=== PATIENT | male | born 1995 ===

== ENCOUNTER 2025-05-12 10:58 | Emergency (ER) | payer MEDICAID, SELFPAY ==
--- NOTE | ~2025-05-12 | XR_ITS ---
EXAMINATION: XR FEMUR, LEFT CLINICAL INFORMATION: fall COMPARISON: None available. TECHNIQUE: AP and lateral views of the left femur were obtained. FINDINGS: Right hip and knee joints are grossly unremarkable. There is no knee joint effusion. There is no femoral fracture evident. XR/XR femur LT 2V IMPRESSION: Unremarkable left femur. Electronically signed by: Franko Mullins MD 05/12/2025 12:27 PM EDT
--- NOTE | ~2025-05-12 | US_ITS ---
EXAMINATION: US TRIPLEX LOWER EXTREMITY, LEFT CLINICAL INFORMATION: Left leg pain COMPARISON: None available. TECHNIQUE: Color-flow triplex imaging with spectral analysis and compression Doppler were performed on the left lower extremity. FINDINGS: Respiratory variation, normal compression and augmented flow are noted throughout the left lower extremity. The visualized common femoral vein, superficial femoral vein, profunda femoral vein, popliteal vein and midcalf peroneal and posterior tibial venous segments show no evidence of deep venous thrombosis. US/US venous duplex LE LT IMPRESSION: No evidence of deep venous thrombosis involving the left lower extremity. Electronically signed by: Franko Mullins MD 05/12/2025 02:50 PM EDT
--- NOTE | ~2025-05-12 | XR_ITS ---
2 view left tibia and fibula. INDICATION: Pain and swelling Prior: None FINDINGS: No acute fracture or deformity is evident. XR/XR tibia fibula LT 2V IMPRESSION: Unremarkable left tibia and fibula. Electronically signed by: Franko Mullins MD 05/12/2025 12:26 PM EDT RP
--- NOTE | ~2025-05-12 | XR_ITS ---
EXAMINATION: XR LUMBOSACRAL SPINE CLINICAL INFORMATION: back pain COMPARISON: None available. TECHNIQUE: Three views of the lumbosacral spine. FINDINGS: The vertebral bodies and posterior elements are normal. The disc spaces are preserved and the vertebral alignment is normal. The paraspinal soft tissues are normal. XR/XR lumbar spine 2-3V IMPRESSION: Unremarkable lumbar spine. Electronically signed by: Franko Mullins MD 05/12/2025 12:29 PM EDT
--- NOTE | ~2025-05-12 | XR_ITS ---
EXAMINATION: XR PELVIS CLINICAL INFORMATION: fall COMPARISON: None available. TECHNIQUE: AP view of the pelvis. FINDINGS: No fracture. Hip joint spaces are maintained. Alignment is anatomic. Sacroiliac joints and pubic symphysis are normal. No abnormal soft tissue calcifications. XR/XR pelvis 1-2V IMPRESSION: Unremarkable pelvic x-ray Electronically signed by: Franko Mullins MD 05/12/2025 12:28 PM EDT
[2025-05-12 11:29] VITALS: BP 123/80; PULSE 84; RESP 20; TEMP 37; O2SAT 98; BMI 22.0
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
[2025-05-12 12:43] VITALS: BP 129/79; PULSE 69; RESP 16; TEMP 36.2; O2SAT 100
[2025-05-12 15:28] VITALS: BP 113/66; PULSE 65; RESP 16; O2SAT 98
[2025-05-12 16:15] VITALS: BP 113/66; PULSE 65; RESP 16; TEMP 36.3; O2SAT 98
--- OUTSIDE RECORDS SUMMARY | 2025-05-12 16:48 | XMS_ITS | Clinical Summary ---
Author Organization [facility] Address [address] [place] [address] Care Team Providers Care Senior Procurement Manager Name Role Phone Unavailable Primary Care Provider Unavailabl e Source Comments PLEASE NOTE, if this patient is a minor, it may be UNLAWFUL to discuss sensitive information that is contained in these records (such as FAMILY PLANNING, MENTAL HEALTH or SUBSTANCE ABUSE) with the minor patient's parent or other person without the patient's specific authorization.[facility] Allergies No known active allergies Medications amoxicillin (AMOXIL) 500 mg capsuleIndicati ons:Pain, dental Take 1 Capsule by mouth 3 (three) times daily. 30 Capsule 02/28/2025 Active ibuprofen 800 mg tabletIndicatio ns:Pain, dental Take 1 Tablet by mouth 3 (three) times daily as needed for pain. 28 Tablet 02/28/2025 Active fluticasone (FLONASE) 50 mcg/actuation nasal sprayIndication s:Nasal congestion,Post -nasal drip Place 2 Sprays in both nostrils once daily. 16 g 1 03/09/2025 Active cetirizine (ZYRTEC) 10 mg tabletIndicatio ns:Acute allergic rhinitis Take 1 Tablet by mouth once daily. 90 Tablet 1 03/09/2025 Active predniSONE (DELTASONE) 20 mg tabletIndicatio ns:URI, acute Take 1 Tablet by mouth once daily. 5 Tablet 04/20/2025 Active dextromethorpha n-guaifenesin (MUCINEX DM) 30-600 mg per 12 hr tabletIndicatio ns:URI, acute Take 1 Tablet by mouth 2 (two) times daily for 7 days. 14 Tablet 04/20/2025 Active Active Problems No known active problems Encounters Date Type Department Care Team Description 05/04/2025 1:00 PM EDT Office Visit [facility] [address] [place] [phone] Ying Dougherty, DMD 04/27/2025 1:00 PM EDT [facility] Visit [facility] [address] [place] [phone] Ying Dougherty, DMD 04/20/2025 11:20 AM EDT [facility] Visit [facility] [address] [phone] Vineet Merchant, Yissel Valentino 03/30/2025 3:00 PM EDT Office Visit [facility] [address] [place] [phone] Ying Dougherty, DMD 03/10/2025 1:00 PM EDT Office Visit [facility] [address] [place] [phone] Sierra Mace, RICHARDS 03/09/2025 9:20 AM EDT Office Visit [facility] [address] [phone] Isabela Turner FNP 03/03/2025 2:20 PM EDT Office Visit [facility] [address] [place] [phone] Sierra Mace DDS 03/02/2025 2:20 PM EDT Office Visit [facility] [address] [place] [phone] Ying Dougherty, DMD 02/28/2025 9:40 AM EDT Office Visit [facility] [address] [place] [phone] Thom Turner, DDS 02/25/2025 2:20 PM EDT Office Visit [facility] [address] [place] [phone] Sierra Mace, DDS 02/09/2025 2:20 PM EDT Office Visit [facility] [address] [place] [phone] Sierra Mace, LINO from Last 3 Months Social History Tobacco Use Types Packs/Day Years Used Date Smoking Tobacco: Never Passive Smoke Exposure: Never Smokeless Tobacco: Never Tobacco Cessation:Counseling Given: Not Answered Alcohol Use Standard Drinks/Week Comments Never 0 (1 standard drink = 0.6 oz pur e alcohol) Sex and Gender Information Value Date Recorded Sex Assigned at Male 11/19/2024 12:57 PM PDT Legal Sex Male 11:00 AM PDT Gender Identity Male 11/19/2024 12:57 PM PDT Sexual Orientation Don't know 11/23/2024 5: 59 AM PDT Last Filed Vital Signs Vital Sign Reading Time Taken Comments Blood Pressure 115/80 05/04/2025 1:19 PM EDT Pulse 74 05/04/2025 1:19 PM EDT Temperature 36.9 C (98.4 F) 04/20/2025 11:19 AM EDT Respiratory Rate 17 04/20/2025 11:19 AM EDT Oxygen Saturation - - Inhaled Oxygen Concentration - - Weight 58.5 kg (129 lb) 04/20/2025 11:19 AM EDT Height 152.4 cm (5') 04/20/2025 11:19 AM EDT Body Mass Index 25.19 04/20/2025 11:19 AM EDT Plan of Treatment Upcoming Encounters Date Type Department Care Team (Late st Contact Info) Description 07/12/2025 1:40 PM EST Office Visit [facility] [address] [place] [phone] Jaeger-BaezBraydon vera, DDS [address] [place] [address] 07/28/2025 1:40 PM EST Office Visit [facility] [address] [place] [phone] Carcamo Theresa Y [address] [place] [address] Health Maintenance Due Date Last Done Comments Anxiety Screening 1994 Dental Perio Charting 1994 Hepatitis C Screening 1994 HIV Screening 2009 Imm-DTaP/Tdap/Td (1 - Tdap) 2013 Imm-Hepatitis B (1 of 3 - 19+ 3-dose series) 3 Imm-Pneumococcal (1 of 2 - PCV) 2013 Imm-HPV (1 - Risk 3-dose SCDM series) 2021 Alcohol and Drug Screen 08/11/2024 Depression Annual Screen 08/11/2024 [id number] ( season) 2025 Imm-Influenza (#1) 2025 Dental BW 01/28/2026 01/26/2025 Dental Examination 01/28/2026 01/26/2025 Dental Prophy 01/28/2026 01/26/2025 Tobacco Screening 04/20/2026 04/20/2025 Hypertension Screening (#1) 05/04/2026 Dental FMX/Pano 01/28/2030 01/26/2025 Procedures Procedure Name Priority Date/Time Associated Diagnosis Comments 14 CORE BUILDUP INCLUDING ANY PINS WHEN REQUIRED Routine 05/04/2025 1:00 PM EDT Symptomatic irreversible pulpitis CASE PRESENTATION SUBS DTL & EXTENSIVE TX PLN Routine 05/04/2025 1:00 PM EDT Symptomatic irreversible pulpitis 14 ENDODONTIC THERAPY MOLAR TOOTH Routine 05/04/2025 1:00 PM EDT Symptomatic irreversible pulpitis 19 ENDODONTIC THERAPY MOLAR TOOTH Routine 04/27/2025 1:00 PM EDT Symptomatic irreversible pulpitis CASE PRESENTATION SUBS DTL & EXTENSIVE TX PLN Routine 04/27/2025 1:00 PM EDT Symptomatic irreversible pulpitis 19 CORE BUILDUP INCLUDING ANY PINS WHEN REQUIRED Routine 04/27/2025 1:00 PM EDT Symptomatic irreversible pulpitis ID NOW INFLUENZA A&B2 (POCT) Routine 04/20/2025 11:44 AM EDT URI, acute COVID-19, ID NOW, GLASER (POCT) Routine 04/20/2025 11:44 AM EDT URI, acute ID NOW STREP A2 (POCT) Routine 04/20/2025 11:35 AM EDT URI, acute 30 CORE BUILDUP INCLUDING ANY PINS WHEN REQUIRED Routine 03/30/2025 3:00 PM EDT Symptomatic irreversible pulpitis CASE PRESENTATION SUBS DTL & EXTENSIVE TX PLN Routine 03/30/2025 3:00 PM EDT Symptomatic irreversible pulpitis 30 ENDODONTIC THERAPY MOLAR TOOTH Routine 03/30/2025 3:00 PM EDT Symptomatic irreversible pulpitis CASE PRESENTATION SUBS DTL & EXTENSIVE TX PLN Routine 03/10/2025 1:00 PM EDT Caries 14 MO RESIN-BASED COMPOSITE - TWO SURFACES POSTERIOR Routine 03/10/2025 1:00 PM EDT Caries OFFICE VISIT OBSERVATION NO OTHER SRVC PERFORMED Routine 03/03/2025 2:20 PM EDT Post-operative state CASE PRESENTATION SUBS DTL & EXTENSIVE TX PLN Routine 03/02/2025 2:20 PM EDT Symptomatic irreversible pulpitis 30 PALLIATIVE TREATMENT OF DENTAL PAIN - PER VISIT Routine 03/02/2025 2:20 PM EDT Symptomatic irreversible pulpitis CASE PRESENTATION SUBS DTL & EXTENSIVE TX PLN Routine 02/28/2025 9:40 AM EDT Pain, dental INTRAORAL - PERIAPICAL FIRST RADIOGRAPHIC IMAGE Routine 02/28/2025 9:40 AM EDT Pain, dental 30 PALLIATIVE TREATMENT OF DENTAL PAIN - PER VISIT Routine 02/28/2025 9:40 AM EDT Pain, dental CASE PRESENTATION SUBS DTL & EXTENSIVE TX PLN Routine 02/25/2025 2:20 PM EDT Caries of dentin 30 O RESIN-BASED COMPOSITE - ONE SURFACE POSTERIOR Routine 02/25/2025 2:20 PM EDT Caries of dentin CASE PRESENTATION SUBS DTL & EXTENSIVE TX PLN Routine 02/09/2025 2:20 PM EDT Abfraction 6 F(V) RESIN-BASED COMPOSITE ONE SURFACE ANTERIOR Routine 02/09/2025 2:20 PM EDT Abfraction 5 B(V) RESIN-BASED COMPOSITE - ONE SURFACE POSTERIOR Routine 02/09/2025 2:20 PM EDT Abfraction INTRAORAL - COMP SERIES OF RADIOGRAPHIC IMAGES Routine 01/26/2025 1:40 PM EDT Bruxism Caries Encounter for dental examination and cleaning with abnormal findings Abfraction PROPHYLAXIS - ADULT Routine 01/26/2025 1 :40 PM EDT Caries Encounter for dental examination and cleaning with abnormal findings Abfraction COMP ORAL EVALUATION - NEW/ESTABLISHED PATIENT Routine 01/26/2025 1:40 PM EDT Caries Encounter for dental examination and cleaning with abnormal findings from Last 3 Months or Most Recently Relevant to Health Maintenance Results * COVID-19, ID NOW, GLASER (POCT) Nasal Swab Routine (04/20/2025 11:44 AM EDT) COVID-19 NEGATIVE NEGATIVE [facility] POCT INTERNAL CONTROL PASS PASS [facility] POCT Swab Nasal structure / Unknown 04/20/2025 11:44 AM EDT Aloonee Mayur MEDICAL ARTIST-C LAB BODY FLUIDS AND STOOL S AMBULATORY Final Result [facility] POCT * ID NOW INFLUENZA A&B2 (POCT) Nasal Swab Routine (04/20/2025 11:44 AM EDT) INFLUENZA A NEGATIVE NEGATIVE [facility] POCT INFLUENZA B NEGATIVE NEGATIVE [facility] POCT INTERNAL CONTROL PASS PASS [facility] POCT Swab Nasal structure / Unknown 04/20/2025 11:44 AM EDT us Aloonee Mayur MEDICAL ARTIST-C LAB BODY FLUIDS AND STOOL S AMBULATORY Final Result [facility] PO[facility] * ID NOW STREP A2 (POCT) Throat Swab Routine (04/20/2025 11:35 AM EDT) STREP A NEGATIVE NEGATIVE [facility] OFF[facility] POCT INTERNAL CONTROL PASS PASS [facility] POCT Swab Structure of anterior region of neck / Unknown 04/20/2025 11:35 AM EDT Meredithdavid NathMayur MEDICAL ARTIST-C LAB - MICROBIOLOGY AMBULA TORY Final Result [facility] OFF[facility] POCT from Last 3 Months Insurance [place]
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
== END 2025-05-12 16:16 | disposition home or self-care (01) ==
PROVIDERS: Emergency Provider Emergency Medicine
DX: S30.0XXA Contusion of lower back and pelvis, initial encounter (principal); M54.50 Low back pain, unspecified; M79.605 Pain in left leg; M79.604 Pain in right leg; R60.0 Localized edema; R10.22 Pelvic and perineal pain left side; X58.XXXA Exposure to other specified factors, initial encounter; Y93.9 Activity, unspecified; Y92.9 Unspecified place or not applicable; Y99.8 Other external cause status
CPT/HCPCS: 72100; 72170; 73552; 73590; 93971; 99283; 99284

== ENCOUNTER → 2025-05-12 11:47 | Outpatient (BNV) | payer SELFPAY | PROVIDERS: Emergency Provider Emergency Medicine; Visit Provider Radiology Diagnostic Radiology | DX: M79.605 Pain in left leg (principal); M54.50 Low back pain, unspecified; W10.9XXA Fall (on) (from) unspecified stairs and steps, initial encounter; Z04.3 Encounter for examination and observation following other accident | CPT/HCPCS: 72100; 72170; 73552; 73590; 93971 ==

== ENCOUNTER 2025-05-27 14:09 | Outpatient (AMB) | payer MEDICAID, SELFPAY ==
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
[2025-05-27 14:25] VITALS: BP 120/79; PULSE 72; O2SAT 98; BMI 22.1
--- OUTSIDE RECORDS SUMMARY | 2025-05-27 16:47 | XMS_ITS | Clinical Summary ---
Author Organization [address] [place] [address] Address [address] [place] [address] Phone Care Team Providers Care [employer] Name Role Phone Physician, No Pcp Primary [...] round of PT currently (he says at [facility]). He feels PT helped his strength but [...] had hip x-rays when he was in [facility], not sure of results. On exam [...] - 05/06/2025 2:50 PM EDT Emergency [facility] Emergency [address] [place] [phone] Deep vein thrombosis (DVT) of left lower extremity, unspecified chronicity, unspecified vein (CMS/HCC V24, CMS/HCC V28) (Primary Dx); Strain of lumbar region, initial encounter; Contusion of lower back, initial encounter; Radicular pain of left lower extremity; Chronic bilateral low back pain with left-sided sciatica Discharge Disposition: Home or Self Care 04/25/2025 6:32 PM EDT - 04/25/2025 8:12 PM EDT Emergency [facility] Emergency [address] [place] [phone] Abhishek Godwin MD Viral URI (Primary Dx) Discharge Disposition: Home or Self Care 03/04/2025 Telephone Neurosurgery [facility] [place] [address] [phone] Deneen Vega MA 02/25/2025 10:30 AM EDT Office Visit Neurosurgery [facility] [place] [address] [phone] Debbie Magdaleno PA Left lumbar radiculopathy (Primary [...] left lower extremity, unspecified chronicity, unspecified vein ([facility] V24, [facility] V28) XR LUMBAR SPINE 2-3 [...] Signed Date: 05/06/2025 13:47 ET Workstation ID: [id number] Transcribed By: Self Edit Transcribed Date: 05/06/2025 [...] Signed Date: 05/06/2025 13:47 ET Workstation ID: [id number] Transcribed By: Self Edit Transcribed Date: 05/06/2025 [...] Signed Date: 05/06/2025 13:07 ET Workstation ID: [id number] Transcribed By: Self Edit Transcribed Date: 05/06/2025 [...] Signed Date: 05/06/2025 13:07 ET Workstation ID: [id number] Transcribed By: Self Edit Transcribed Date: 05/06/2025 13:07 ET Amarjit LAW IMG XR PROCEDURES Final Resu lt * Respiratory virus panel molecular study (04/25/2025 6:46 PM EDT) Adenovirus Detection by PCR Not Detected Not Detected LAB MICROBIOLOGY METHOD 04/25/2025 7:54 PM EDT [facility] Influenza A PCR Not Detected Not Detected LAB MICROBIOLOGY METHOD 04/25/2025 7:54 PM EDT [facility] Influenza B PCR Not Detected Not Detected LAB MICROBIOLOGY METHOD 04/25/2025 7:54 PM EDT [facility] Coronavirus 229E Not Detected Not Detected LAB MICROBIOLOGY METHOD 04/25/2025 7:54 PM EDT [facility] Coronavirus HKU1 Not Detected Not Detected LAB MICROBIOLOGY METHOD 04/25/2025 7:54 PM EDT [facility] Coronavirus OC43 Not Detected Not Detected LAB MICROBIOLOGY METHOD 04/25/2025 7:54 PM EDT [facility] Coronavirus NL63 Not Detected Not Detected LAB MICROBIOLOGY METHOD 04/25/2025 7:54 PM EDT [facility] Parainfluenza Virus 1 Not Detected Not Detected LAB MICROBIOLOGY METHOD 04/25/2025 7:54 PM EDT [facility] Parainfluenza Virus 2 Not Detected Not Detected LAB MICROBIOLOGY METHOD 04/25/2025 7:54 PM EDT [facility] Parainfluenza Virus 3 Not Detected Not Detected LAB MICROBIOLOGY METHOD 04/25/2025 7:54 PM EDT [facility] Parainfluenza Virus 4 Not Detected Not Detected LAB MICROBIOLOGY METHOD 04/25/2025 7:54 PM EDT [facility] RSV PCR Not Detected Not Detected LAB MICROBIOLOGY METHOD 04/25/2025 7:54 PM EDT [facility] Human Metapneumovirus A and B Not Detected Not Detected LAB MICROBIOLOGY METHOD 04/25/2025 7:54 PM EDT [facility] Rhinovirus/Entero virus Not Detected Not Detected LAB MICROBIOLOGY METHOD 04/25/2025 7:54 PM EDT [facility] Bordetella pertussis Not Detected Not Detected LAB MICROBIOLOGY METHOD 04/25/2025 7:54 PM EDT [facility] Bordetella parapertussis Not Detected Not Detected LAB MICROBIOLOGY METHOD 04/25/2025 7:54 PM EDT [facility] Mycoplasma pneumo by PCR Not Detected Not Detected LAB MICROBIOLOGY METHOD 04/25/2025 7:54 PM EDT [facility] Chlamydia pneumoniae Not Detected Not Detected LAB MICROBIOLOGY METHOD 04/25/2025 7:54 PM EDT [facility] SARS COV-2 Not Detected Not Detected LAB MICROBIOLOGY METHOD 04/25/2025 7:54 PM EDT [facility] Swab Both anterior nares / Unknown Non-blood Collection / Unknown 04/25/2025 6:46 PM EDT 04/25/2025 6:58 PM EDT Narrative [facility] - 04/25/2025 7:54 PM EDT Testing was performed using the RapidMind Respiratory Pathogen PCR Assay. All results must [...] ORDER PERFECTO Final Result Performing Organization Address [facility]/ZIP Co de Phone Number [facility] [address] [place] [address], [place] [phone] * Rapid strep A screen (04/25/2025 6:46 PM EDT) Strep A Ag Negative Negative, Invalid 04/25/2025 7:10 PM EDT [facility] Comment:Refer to Throat Cult ure. Swab Structure of anterior region of neck / Unknown Non-blood Collection / Unknown 04/25/2025 6:46 PM EDT 04/25/2025 6:58 PM EDT us Abhishek Godwin MD LAB MICROBIOLOGY - GENERAL ORDER PERFECTO Final Result Performing Organization Address City/[facility]/ZIP Co de Phone Number [facility] [address] [place] [address], [place] [phone] * Culture throat (04/25/2025 6:46 PM EDT) Culture, Throat No pathogens isolated. 04/29/2025 11:28 AM EDT [facility] Swab Structure of anterior region of neck / Unknown Non-blood Collection / Unknown 04/25/2025 6:46 PM EDT 04/25/2025 6:58 PM EDT us Abhishek Godwin MD LAB MICROBIOLOGY - GENERAL ORDER PERFECTO Final Result [facility] [address] [place] [address], * XR Chest 2 Views (04/25/2025 4:15 PM EDT) Anatomical Region Laterality Modality Body Radiographic Heather ging 04/25/2025 4:54 PM EDT Impressions 04/25/2025 4:55 PM EDT Impression: Normal chest. Telerad PA () -------- FINAL REPORT -------- Dictated By: Anna Harper Dictated Date: 04/25/2025 16:54 ET Assigned Physician: Anna Harper Reviewed and Electronically Signed By: Anna Harper Signed Date: 04/25/2025 16:55 ET Workstation ID: [id number] Transcribed By: Self Edit Transcribed Date: 04/25/2025 [...] unremarkable. IMPRESSION: Impression: Normal chest. Telerad PA ([id number]) -------- FINAL REPORT -------- Dictated By: Anna Harper Dictated Date: 04/25/2025 16:54 ET Assigned Physician: Anna Harper Reviewed and Electronically Signed By: Anna Harper Signed Date: 04/25/2025 16:55 ET Workstation ID: [id number] Transcribed By: Self Edit Transcribed Date: 04/25/2025 16:54 ET Abhishek Godwin MD IMG XR PROCEDURES Final Result from Last 3 Months Insurance MEDICAID - [place] Care Teams [employer] Relationship Specialty Start Date End Date Physician, No Pcp PCP - General 04/25/25
--- OUTSIDE RECORDS SUMMARY | 2025-05-27 16:47 | XMS_ITS | Clinical Summary ---
Author Organization [facility] Address [address] [place] [address] Care Team Providers Care Quality Review Specialist Name Role Phone Unavailable Primary Care Provider [...] Description 05/04/2025 1:00 PM EDT Office Visit [facility] [address] [place] [phone] Ying Dougherty, DMD 04/27/2025 1:00 PM EDT [facility] Visit [facility] [address] [place] [phone] Ying Dougherty, DMD 04/20/2025 11:20 AM EDT Office Visit [facility] [address] [phone] Vineet Merchant, Yissel Valentino 03/30/2025 3:00 PM EDT Office Visit [facility] [address] [place] [phone] Ying Dougherty, DMD 03/10/2025 1:00 PM EDT Office Visit [address] [phone] Sierra Mace, DDS 03/09/2025 9:20 AM EDT Office Visit [address] [phone] Isabela Turner FNP 03/03/2025 2:20 PM EDT Office Visit [facility] [address] [place] [phone] Sierra Mace, DDS 03/02/2025 2:20 PM EDT Office Visit [address] [phone] Ying Dougherty, DMD 02/28/2025 9:40 AM EDT Office Visit [facility] [address] [place] [phone] Thom Turner, DDS 02/25/2025 2:20 PM EDT Office Visit [facility] [address] [place] [phone] Sierra Mace, DDDennise from Last 3 Months Social History Tobacco [...] Description 07/12/2025 1:40 PM EST Office Visit [facility] [address] [place] [phone] Braydon Pollock DDS [address] [place] [address] 07/28/2025 1:40 PM EST Office Visit [facility] [address] [place] [phone] Theresa Carcamo Y [address] [place] [address] Health Maintenance Due Date Last Done Comments Anxiety Screening 1994 Dental Perio Charting 1994 Hepatitis C Screening 1994 HIV Screening 2009 Imm-DTaP/Tdap/Td (1 - Tdap) 2013 Imm-Hepatitis B (1 of 3 - 19+ 3-dose series) 3 Imm-Pneumococcal (1 of 2 - PCV) 2013 Imm-HPV (1 - Risk 3-dose SCDM series) 2021 Alcohol and Drug Screen 08/11/2024 Depression Annual Screen 08/11/2024 [id number] ( season) 2025 Imm-Influenza (#1) 2025 Dental [...] 02/25/2025 2:20 PM EDT [facility] INTRAORAL - COMP SERIES OF RADIOGRAPHIC IMAGES [...] / Unknown 04/20/2025 11:44 AM EDT us Vineet Merchant PATIENT OBSERVATION ASSISTANT-C LAB BODY FLUIDS AND STOOL S AMBULATORY [...] / Unknown 04/20/2025 11:44 AM EDT us Vineet Ashbyri PATIENT OBSERVATION ASSISTANT-C LAB BODY FLUIDS AND STOOL S AMBULATORY Final Result [facility] * ID NOW STREP A2 (POCT) Throat Swab Routine (04/20/2025 11:35 AM EDT) STREP A NEGATIVE NEGATIVE [facility] POCT INTERNAL CONTROL PASS PASS [facility] POCT Swab Structure of anterior region of neck / Unknown 04/20/2025 11:35 AM EDT Vineet Merchant PATIENT OBSERVATION ASSISTANT-C LAB - MICROBIOLOGY AMBULA TORY Final Result [facility] POCT from Last 3 Months [facility] MEDICAID Member Subscriber Plan / Payer (Ef fective 2024-Present) Name:Prince Hudson Relation to Subscriber:Self Name:Morillo AislinnPrince murphy Payer ID:[id number] Group ID:Not on file Type:Medicaid Address: [place] [id number] HEALTH SAFETY NET MEDICAID DENTAL [facility] DENTAL
== END 2025-05-27 15:00 | disposition home or self-care (01) ==
PROVIDERS: Visit Provider Nurse Practitioner Family
DX: M79.605 Pain in left leg (principal); M54.50 Low back pain, unspecified; G89.29 Other chronic pain; M54.16 Radiculopathy, lumbar region; Z91.81 History of falling; M53.3 Sacrococcygeal disorders, not elsewhere classified
CPT/HCPCS: 99204

== ENCOUNTER → 2025-05-27 14:09 | Outpatient (BNVA) | payer MEDICAID, SELFPAY | PROVIDERS: Visit Provider Nurse Practitioner Family | DX: Z09 Encounter for follow-up examination after completed treatment for conditions other than malignant neoplasm (principal); M79.605 Pain in left leg; M54.50 Low back pain, unspecified; G89.29 Other chronic pain; M54.16 Radiculopathy, lumbar region; M53.3 Sacrococcygeal disorders, not elsewhere classified; Z91.81 History of falling | CPT/HCPCS: 99212 ==